=== PATIENT | male | born 1995 | race Caucasian/White ===

== ENCOUNTER 2020-10-31 04:45 | Emergency (ER) | payer OTHER ==
[~2020-10-31] VITALS: Ht 182.9 cm; Wt 111.1 kg
[2020-10-31 07:15] VITALS: BP 136/90
--- NOTE | 2020-10-31 07:20 | NUR ---
neddile stick to left hand
[2020-10-31 08:08] VITALS: BP 136/90
--- NOTE | 2020-10-31 08:09 | NUR ---
Patient discharged with v/s stable. Written and verbal after care instructions given and explained. Patient verbalized understanding. Ambulatory with steady gait. All questions addressed prior to discharge. Advised to follow up with PMD.
[2020-11-01 19:40] LABS: HEPATITIS B SURFACE ANTIGEN NEGATIVE (NEGATIVE)
== END 2020-10-31 07:38 | disposition home or self-care (01) ==
LOC: MED 04:45
DX: S60.922A Unspecified superficial injury of left hand, initial encounter (principal); W46.0XXA Contact with hypodermic needle, initial encounter; Y93.89 Activity, other specified; Y92.89 Other specified places as the place of occurrence of the external cause; Y99.8 Other external cause status
CPT/HCPCS: 36415; 86592; 86702; 86803; 87340; 99283

== ENCOUNTER 2021-12-20 16:44 | Emergency (ER) | payer OTHER ==
[~2021-12-20] VITALS: Ht 182.9 cm; Wt 120.2 kg
[2021-12-20 16:44] VITALS: BP 156/88
--- NOTE | 2021-12-20 16:56 | NUR ---
Note [email or web address] in EDM - 12/20/21 at 1704 by [email or web address] 42 Y/O M C/O LEFT LOWER LEG PAIN 07/29 AND SWELLING, REDNESS AND EDEMA ON AND OFF BUT MORE SINCE YESTERDAY. NO CHILLS, FEVER, SOB OR SORE THROAT. DENIES INJURY. NKA PMH: ASTHMA
[2021-12-20] MEDS ORDERED: KETOROLAC 30 MG/ML VIAL IM ONE (17:00)
--- NOTE | 2021-12-20 17:07 | NUR ---
26 Y/O M C/O R RIB PAIN 12/27 AND 07/29 WHEN PT MOVES. PT WAS IN THE GYM AND HAD WEIGHTS FALL ON HIM THIS MORNING. DENIES TAKING MEDICATION FOR PAIN. NKA OR PMH
--- NOTE | 2021-12-20 17:18 | NUR ---
26/M C/O RIB PAIN S/P DROPPING A BARBELL ON HIMSELF WHILE AT THE GYM THIS MORNING. REPORTS 10/10 SHARP PAIN THAT WORSENS WITH MOVEMENT OR TOUCH OF SITE, DENIES TAKING ANYTHING FOR PAIN. DENIES SOB, CP.
--- NOTE | 2021-12-20 17:45 | NUR ---
PT TAKEN TO ER BED 6 VIA W/C.
[2021-12-20] MEDS ORDERED: CYCL-711 PO (18:31)
[2021-12-20] MEDS ORDERED: IBUP-2213 PO (18:31)
--- NOTE | 2021-12-20 18:37 | NUR ---
Patient discharged with v/s stable. Written and verbal after care instructions given and explained. Patient alert, oriented and verbalized understanding of instructions. Ambulatory with steady gait. All questions addressed prior to discharge. ID band removed. Patient advised to follow up with PMD. Rx of CYCLOBENZAPRINE HCI, IBUPROFEN given. Opportunity to ask questions provided and answered.
--- NOTE | 2021-12-20 18:38 | NUR ---
The patient's care was reviewed and supervised by Kathie Gaming RN.
== END 2021-12-20 18:37 | disposition home or self-care (01) ==
LOC: MED 16:44
DX: S20.20XA Contusion of thorax, unspecified, initial encounter (principal); R03.0 Elevated blood-pressure reading, without diagnosis of hypertension; Z79.899 Other long term (current) drug therapy; W22.8XXA Striking against or struck by other objects, initial encounter; Y93.B3 Activity, free weights; Y92.89 Other specified places as the place of occurrence of the external cause; Y99.8 Other external cause status
CPT/HCPCS: 71101; 96372; 99283; J1885